=== PATIENT | male | born 1950 | race Caucasian/White ===

== ENCOUNTER 2016-12-05 05:22 | Day surgery (SDC) | payer OTHER ==
[2016-10-19 11:04] VITALS: BMI 28.0
--- NOTE | 2016-10-19 11:43 | PAT Medication Instructions ---
Service Date Oct 19, 2016. Current Home Medication List Cholecalciferol (Vitamin D), 2,000 MG PO NOON Doxycycline (Monohydrate) (Doxycycline), 100 MG PO NOON Fish Oil ([place]-3), 1 CAP PO NOON Insulin Aspart (Novolog), UNITS SC AC Insulin Glargine (Lantus), 33 UNITS SC HS Liraglutide (Victoza), 1.8 MG SQ HS Lisinopril (Prinivil), 30 MG PO NOON Metformin Hcl (Glucophage), 500 MG PO NOON Multiple Vitamins W/ Minerals (Centrum Silver), 1 MG PO NOON Omeprazole (Omeprazole), 1 MG PO NOON Simvastatin (Zocor), 20 MG PO QPM Triamcinolone Acetonide (Topic (Triamcinolone Acet 0.025%), TOP BID PRN Medication Instructions For Your Scheduled Surgery - Hold the following medications starting 10/19/16: Fish Oil ([place]-3), 1 CAP PO NOON - Hold the following medications 24 hours prior to surgery: Triamcinolone Acetonide (Topic (Triamcinolone Acet 0.025%), TOP BID PRN Lisinopril (Prinivil), 30 MG PO NOON - Hold the following medications 48 hours prior to surgery: Metformin Hcl (Glucophage), 500 MG PO NOON - Hold the following medications the morning of surgery: Insulin Aspart (Novolog), UNITS SC AC - Take the following medications as scheduled the night before surgery: Simvastatin (Zocor), 20 MG PO QPM Omeprazole (Omeprazole), 1 MG PO NOON Multiple Vitamins W/ Minerals (Centrum Silver), 1 MG PO NOON Liraglutide (Victoza), 1.8 MG SQ HS Insulin Glargine (Lantus), 33 UNITS SC HS Cholecalciferol (Vitamin D), 2,000 MG PO NOON Doxycycline (Monohydrate) (Doxycycline), 100 MG PO NOON If you have any questions please call us at [phone] (Emma Valladares PA-C ) or [phone] or [phone]
[2016-10-19 13:25] LABS: ESTIMATED AVERAGE GLUCOSE 226 mg/dl; HA1C FLAG Normal (Normal)
[2016-10-19 13:44] LABS: BUN/CREATININE RATIO 19.8 (10-20); CALCIUM 9.3 mg/dl (8.5-10.1); POTASSIUM 4.8 mmol/L (3.5-5.1)
[2016-11-20 08:16] VITALS: BMI 28.0
[~2016-12-05] VITALS: Ht 172.7 cm; Wt 84.1 kg
[~2016-12-05 05:22] MED LIST: CEFAZOLIN 2000 MG/60 ML D5W IV SCH; CHOL20009 PO; DOXY100C76 PO; GLC/500 PO; INSDGI SC; LACTATED RINGER'S 1000ML 1,000 ML IV SCH; LIRA18IN SQ; LISI20TA3 PO; MULTCHW PO; NVLGI SC; OMEG10007 PO; OMEP20TA PO; SIMV20TA2 PO; TRIA0.022 TOP
[2016-12-05 05:43] VITALS: BP 141/71; PULSE 61; TEMP 36.8; O2SAT 97; Ht 172.7 cm; Wt 84.1 kg
[2016-12-05] MEDS ORDERED: CEFAZOLIN 2000 MG/60 ML D5W IV SCH (06:00)
[2016-12-05] MEDS ORDERED: LACTATED RINGER'S 1000ML 1,000 ML IV SCH (06:00)
[2016-12-05] MEDS ORDERED: BUPIVACAINE 0.5 % 5 MG/1 ML MPF 30ML VIAL ONE (06:59)
[2016-12-05] MEDS ORDERED: LIDOCAINE HCL 1% 20 ML VIAL ONE (06:59)
[2016-12-05] MEDS ORDERED: BACITRACIN OINT 15 GM TUBE ONE (06:59)
--- NOTE | 2016-12-05 07:08 | History & Physical Bridge Note ---
H&P Re-Evaluation Bridge Note: I have examined the patient, reviewed the History & Physical and in the interval since the performance of the History & Physical I have noted the following changes of clinical significance: No changes noted
[2016-12-05] MEDS ORDERED: MIDAZOLAM HCL 1 MG/ML 2ML VIAL ONE (07:16)
[2016-12-05] MEDS ORDERED: FENTANYL CITRATE INJ 50 MCG/1 ML 2 ML VIAL ONE (07:17)
[2016-12-05] MEDS ORDERED: ROCURONIUM BROMIDE 10 MG/ML 5 ML VIAL ONE (07:53)
[2016-12-05] MEDS ORDERED: LIDOCAINE HCL 2% 2 ML VIAL (20MG/ML) ONE (07:53)
[2016-12-05] MEDS ORDERED: DEXAMETHASONE SOD INJ 4 MG/ML VIAL ONE (07:53)
[2016-12-05] MEDS ORDERED: ONDANSETRON INJ 2 MG/ML 2 ML VIAL ONE (07:53)
[2016-12-05] MEDS ORDERED: KETOROLAC TROMETHAMINE 30 MG/ML VIAL ONE (07:53)
[2016-12-05] MEDS ORDERED: LARYING-O-JET KIT (LTA) EXT ONE ×2 (07:53)
[2016-12-05] MEDS ORDERED: PROPOFOL IV EMULSION 10 MG/ML 20 ML VIAL IV ONE (07:53)
[2016-12-05] MEDS ORDERED: GLYCOPYRROLATE INJ 0.2 MG/ML VIAL ONE (07:53)
[2016-12-05] MEDS ORDERED: NEOSTIGMINE METHYLSULFATE 5 MG/5 ML SYR ONE (07:53)
--- NOTE | 2016-12-05 08:00 | [facility] Post Operative Brief Note ---
Immediate Operative Summary Operative Date December 05, 2016. Pre-Operative Diagnosis UMBILICAL HERNIA Post-Operative Diagnosis SAME Procedure(s) Performed Open Repair Umbilican Hernia Surgeon Dr. Garcia Laminator Surgeon(s) Yaa Koch PA-C Estimated Blood Loss 5ml Findings umbilical hernia size 1.2x1.2cm, Fluids (cc crystalloids) 600ml Specimens a. Hernia Sac Drains none Anesthesia general Complication(s) None Disposition Recovery Room / PACU
[2016-12-05] MEDS ORDERED: OXYC-57 PO (08:12)
[2016-12-05] MEDS ORDERED: EpHEDrine SULFATE INJ 50 MG/ML AMP IV PRN (08:15)
[2016-12-05] MEDS ORDERED: LABETALOL HCL IV 5 MG/ML 20ML IV PRN (08:15)
[2016-12-05] MEDS ORDERED: ONDANSETRON INJ 2 MG/ML 2 ML VIAL IV PRN ×2 (08:15→08:30)
[2016-12-05] MEDS ORDERED: ATROPINE SULFATE 0.1 MG/ML 5ML SYR IV PRN (08:15)
[2016-12-05] MEDS ORDERED: MEPERIDINE HCL 25 MG/ML CARP IV PRN (08:15)
[2016-12-05] MEDS ORDERED: HYDROmorphone INJ 1 MG/ML SYR IV PRN (08:15)
--- NOTE | 2016-12-05 08:16 | Discharge Instructions ---
Discharge Instructions Date of Service December 05, 2016. Admission Reason for Admission: Umbilical Hernia Discharge Discharge Diagnosis / Problem: Umbilical hernia Discharge Goals Goal(s): Decrease discomfort Activity Recommendations Activity Limitations: as noted below no heavy lifting over 20 pounds for 4-6 weeks No strenuous activity until cleared by surgeon walking and light activity is encouraged No driving while taking narcotic pain medication . Instructions / Follow-Up Instructions / Follow-Up You may shower in 4 days, sponge bath and wash hair in meantime Keep dressing dry for 4 days and then remove Keep steri strips on for 7 days and then remove, if they fall off before that is okay Follow-up with Dr. Garcia in one week Call office at [phone] if you do not already have an appointment You may take extra strength Tylenol or Ibuprofen as needed for the pain if you do not want to take the narcotic pain medication. DO NOT take Tylenol with the Percocet as it has Tylenol in it. Current Hospital Diet Patient's current hospital diet: Discharge Diet Recommended Diet: Regular Diet Procedures Procedures Performed: Open Repair Umbilican Hernia Pending Studies Studies pending at discharge: no Laboratory Results Hemoglobin A1c Test 10/19/16 11:45 Range/Units Estimated Average Glucose 226 mg/dl Hemoglobin A1c 9.5 H 4.5-5.6 % Medical Emergencies . Who to Call and When: Medical Emergencies: If at any time you feel your situation is an emergency, please call 911 immediately. . Non-Emergent Contact Non-Emergency issues call your: Primary Care Provider, Surgeon Call Non-Emergent contact if: you have a fever, temperature is above 101.5, your pain is not controlled, your pain is worsening, wound has increased drainage, wound has increased redness, wound has increased pain . "Provider Documentation" section prepared by Yaa Koch. . VTE Core Measure Inpt VTE Proph given/why not?: SCD's [place] Drug Monitoring Program Search Results: patient reviewed within database, no issues identified
[2016-12-05] MEDS: FENTANYL CITRATE INJ 50 MCG/1 ML 2 ML VIAL IV PRN ×5 (08:23→08:43)
[2016-12-05] MEDS ORDERED: MoRPHine SULFATE 2 MG/ML CARP IV PRN ×2 (08:30)
[2016-12-05] MEDS ORDERED: OXYCODONE/ACETAMINOPHEN 5-325 TAB PO PRN (08:30)
--- NOTE | 2016-12-05 08:38 | OPERATIVE REPORT ---
DATE OF OPERATION: 12/05/2016 PREOPERATIVE DIAGNOSIS: Umbilical hernia. POSTOPERATIVE DIAGNOSIS: Same. OPERATION: Open repair of umbilical hernia primary closure. SURGEON: Dr. Emy Garcia. HEARINGS REPORTER: Yaa Koch PA-C. ANESTHESIA: General. ESTIMATED BLOOD LOSS: About 5 mL. IV FLUID: 600 mL. FINDINGS: Umbilical hernia size about 1.2 x 1.2 cm. COMPLICATIONS: None. INDICATIONS FOR THE PROCEDURE: This is a 66-year-old gentleman who presented symptomatic umbilical hernia. The patient will require open repair of umbilical hernia, possible mesh. I did talk to the patient about the benefit and risk, alternate procedure. I indicated the risks may include but not limited such as bleeding, infection, hernia recurrence, myocardial infarction and even , even injury to bowel. The patient understands. He signed informed consent and I answered all questions. OPERATION AND FINDINGS: DETAILS OF PROCEDURE: We brought the patient to the OR, put the patient in the supine position. The patient received SCD on bilateral legs to prevent DVT. Also, the patient received 2 grams Ancef IV for prophylactic antibiotic. The patient received general anesthesia without difficulty. The abdomen was prepped and draped in routine sterile fashion. After time out, I made a small incision just below the umbilical opened fascia, mobilized the umbilical and the hernia is reduced. Once we opened the hernia sac we completely removed the hernia sac, sent the specimen to pathology. Found the patient had a 1.2 x 1.2 hernia defect. We decided to use 0 Ethibond primary closure of the umbilical hernia [id number] x2. Rechecked the closure nicely, no tension. Then we used 2-0 Vicryl reattach umbilical to original location then used 2-0 Vicryl to close subcutaneous layer interrupted, closed the skin by using 4-0 Vicryl continuous running. Then we injected the local anesthesia by using 1% lidocaine mixed with 0.5% Marcaine around the incision. Then we put the dressing on. The patient tolerated the procedure well. After the procedure, I did talk to the patient and family member about OR finding and gave patient the postop care instruction. All the instrument, needle and sponge count correct x2 at the end of case. The patient transferred to recovery room in stable condition. The specimen sent to pathology. I attest to the content of the Intraoperative Record and any orders documented therein. Any exceptions are noted below. MTDD
[2016-12-05 09:30] VITALS: BP 146/72; PULSE 51; TEMP 36.4; O2SAT 94
--- NOTE | 2016-12-05 09:46 | Anesthesiology Progress Note ---
Anesthesia Post Op Note Date & Time December 05, 2016 at 09:46 Vital Signs Pain Intensity: 4 Vital Signs Past 12 Hours Date Time Temp Pulse Resp B/P Pulse Ox O2 Delivery O2 Flow Rate FiO2 12/05/16 09:30 36.4 51 16 146/72 94 Room Air 12/05/16 08:58 56 12 96 12/05/16 08:58 56 12 12/05/16 08:57 174/71 12/05/16 08:53 58 14 12/05/16 08:53 59 14 98 12/05/16 08:51 159/78 12/05/16 08:48 58 7 97 12/05/16 08:48 59 7 12/05/16 08:47 144/83 12/05/16 08:43 62 18 92 12/05/16 08:43 62 18 12/05/16 08:41 151/68 12/05/16 08:38 59 13 95 12/05/16 08:38 60 13 12/05/16 08:36 155/82 12/05/16 08:15 36.3 64 14 156/79 100 Nasal Cannula 10 12/05/16 08:08 36.3 64 14 156/79 100 Nasal Cannula 10 12/05/16 05:43 36.8 61 20 141/71 97 Room Air Notes Mental Status: alert / awake / arousable, participated in evaluation Pt Amnestic to Procedure: Yes Nausea / Vomiting: adequately controlled Pain: adequately controlled Airway Patency, RR, SpO2: stable & adequate BP & HR: stable & adequate Hydration State: stable & adequate Anesthetic Complications: no major complications apparent
[2016-12-05 09:58] VITALS: BP 127/58; PULSE 50; O2SAT 94
[2016-12-05 10:30] VITALS: BP 118/59; PULSE 50; O2SAT 97
[2016-12-05 11:25] VITALS: BP 144/63; PULSE 55; TEMP 36.4; O2SAT 98
[2016-12-06] MEDS ORDERED: CEFAZOLIN IV 2,000 MG/60 ML D5W IV ONE (06:00)
== END 2016-12-05 11:33 | disposition home or self-care (01) ==
LOC: C.ACU 05:22
PROVIDERS: ATTEND Surgery
DX: K42.9 Umbilical hernia without obstruction or gangrene (principal); E11.29 Type 2 diabetes mellitus with other diabetic kidney complication; I45.10 Unspecified right bundle-branch block; E78.5 Hyperlipidemia, unspecified; L40.9 Psoriasis, unspecified; K58.9 Irritable bowel syndrome, unspecified; D86.9 Sarcoidosis, unspecified; Z79.4 Long term (current) use of insulin; Z79.82 Long term (current) use of aspirin; Z79.899 Other long term (current) drug therapy